=== PATIENT | female | born 1980 | race Caucasian/White ===

== ENCOUNTER → 2016-10-06 | Outpatient (CLI) | payer MEDICAID | LOC: OD 10:33 | PROVIDERS: ATTEND Physician Assistant | DX: R05 Cough (principal) | CPT/HCPCS: 71020 ==

== ENCOUNTER 2018-07-30 17:33 | Emergency (ER) | payer SELFPAY ==
[2018-07-30] MEDS ORDERED: NORMAL SALINE 1000 ML 1,000 ML IV ONE (17:59)
[2018-07-30] MEDS ORDERED: KETOROLAC TROMETHAMINE INJ/PF 30 MG/1 ML SDV IV ONE (17:59)
[2018-07-30] MEDS ORDERED: ONDANSETRON HCL INJ/PF 4 MG/2 ML SDV IV ONE (17:59)
--- NOTE | 2018-07-30 18:01 | ER Document Report ---
ED Medical Screen (RME) - General Chief Complaint: Flank Pain Stated Complaint: ABDOMINAL PAIN, VOMITING Time Seen by Provider: 07/30/18 17:58 Mode of Arrival: Ambulatory Information source: Patient TRAVEL OUTSIDE OF THE [place] IN LAST 30 DAYS: No - HPI Patient complains to provider of: L flank; abd pain Onset: Yesterday - pt. with onset of L flank pain radiating to lower abd with N and vomiting several times. Denies diarrhea - Related Data Allergies/Adverse Reactions: No Known Allergies Allergy (Unverified 07/30/18 17:34) Physical Exam - Vital signs Vitals: Temp Pulse Resp BP Pulse Ox 98.0 F 62 20 146/81 H 97 07/30/18 17:46 07/30/18 17:46 07/30/18 17:46 07/30/18 17:46 07/30/18 17:46 Course - Vital Signs Vital signs: Temp Pulse Resp BP Pulse Ox 98.0 F 62 20 146/81 H 97 07/30/18 17:46 07/30/18 17:46 07/30/18 17:46 07/30/18 17:46 07/30/18 17:46 Doctor's Discharge - Discharge Referrals: TYE JADE MD [Primary Care Provider] - Follow up as needed
[2018-07-30 18:43] LABS: HEMATOCRIT 39.4 % (36.0-47.0); HEMOGLOBIN 13.4 g/dL (12.0-15.5); MEAN CORPUSCULAR HEMOGLOBIN 34.2 pg (27.0-33.4); MEAN CORPUSCULAR HGB CONC 34.2 g/dL (32.0-36.0); MEAN CORPUSCULAR VOLUME 100 fl (80-97); PLATELET COUNT 460 10^3/uL (150-450); RED BLOOD COUNT 3.93 10^6/uL (3.72-5.28); RED CELL DISTRIBUTION WIDTH 14.1 % (11.5-14.0); WHITE BLOOD COUNT 21.5 10^3/uL (4.0-10.5)
[2018-07-30 18:45] LABS: APPEARANCE,URINE CLOUDY; BILIRUBIN,URINE NEGATIVE (NEGATIVE); COLOR,URINE YELLOW; GLUCOSE, URINE NEGATIVE (NEGATIVE); KETONES,URINE 20 mg/dL (NEGATIVE); LEUKOCYTE ESTERASE,URINE NEGATIVE (NEGATIVE); NITRITE,URINE NEGATIVE (NEGATIVE); PROTEIN,URINE NEGATIVE (NEGATIVE); URINE SPECIFIC GRAVITY 1.021; UROBILINOGEN,URINE NEGATIVE mg/dL (<2.0)
[2018-07-30 18:56] LABS: ALANINE AMINOTRANSFERASE 23 U/L (9-52); ALBUMIN 4.6 g/dL (3.5-5.0); ALKALINE PHOSPHATASE 89 U/L (38-126); ANION GAP 9 (5-19); ASPARTATE AMINO TRANSFERASE 17 U/L (14-36); BILIRUBIN,DIRECT 0.3 mg/dL (0.0-0.4); BILIRUBIN,TOTAL 0.4 mg/dL (0.2-1.3); BLOOD UREA NITROGEN 11 mg/dL (7-20); CALCIUM 10.1 mg/dL (8.4-10.2); CARBON DIOXIDE 27 mmol/L (22-30); CHLORIDE 105 mmol/L (98-107); GLUCOSE 120 mg/dL (75-110); SODIUM 141.2 mmol/L (137-145); TOTAL PROTEIN 7.7 g/dL (6.3-8.2)
--- NOTE | 2018-07-30 19:00 | ER Document Report ---
ED General - General Mode of Arrival: Ambulatory TRAVEL OUTSIDE OF THE [place] IN LAST 30 DAYS: No <LORELEI VELA - Last Filed: 07/31/18 01:39> <PATTI PRO - Last Filed: 07/31/18 07:16> <SAIMA MUNSON - Last Filed: 07/31/18 07:56> - General Chief Complaint: Flank Pain Stated Complaint: ABDOMINAL PAIN, VOMITING Time Seen by Provider: 07/30/18 17:58 Notes: Patient is a 38-year-old female who presents emergency department with a chief complaint of lower abdominal pain, vomiting, lower back pain, and feeling she was going to pass out. She states her pain started around 1230 this afternoon and she had to pin puller because she got nauseous. She then was able to get home, and vomited multiple times. She denies diarrhea, fever, chills, or any other symptoms. She does have history of an ovarian cyst. Her pain today feels similar to her ovarian cyst, but she did not have vomiting last time. She is a pack a day smoker. (EDDIE VELAHANIE Sixto) - Related Data Allergies/Adverse Reactions: No Known Allergies Allergy (Unverified 07/30/18 17:34) Past Medical History - General Information source: Patient - Social History Smoking Status: Current Every Day Smoker Chew tobacco use (# tins/day): No Frequency of alcohol use: None Drug Abuse: None Family History: Reviewed & Not Pertinent Patient has suicidal ideation: No Patient has homicidal ideation: No Renal/ Medical History: Denies: Hx Peritoneal Dialysis <LORELEI VELA - Last Filed: 07/31/18 01:39> Review of Systems <LORELEI VELA - Last Filed: 07/31/18 01:39> <PATTI PRO - Last Filed: 07/31/18 07:16> <SAIMA MUNSON - Last Filed: 07/31/18 07:56> - Review of Systems Notes: REVIEW OF SYSTEMS: CONSTITUTIONAL : Denies recent illness. Denies recent unintentional weight loss. Denies fever, chills, or sweats. EENT: Denies eye, ear, throat, or mouth pain, discharge, or symptoms. Denies nasal or sinus congestion. CARDIOVASCULAR: Denies chest pain. RESPIRATORY: Denies shortness of breath, cough, congestion, difficulty breathing , or wheezing. GASTROINTESTINAL: See HPI GENITOURINARY: Denies difficulty urinating, burning, blood in urine, urgency or frequency. MUSCULOSKELETAL: Denies neck and back pain. Denies joint pain or swelling. SKIN: Denies rash, itchiness, or lesions HEMATOLOGIC : Denies easy bruising or bleeding. LYMPHATIC: Denies swollen, painful, enlarged glands. NEUROLOGICAL: Denies no numbness or tingling denies weakness. Denies headache. Denies altered mental status. Denies alteration in speech. PSYCHIATRIC: Denies stress, anxiety, alteration in sleep patterns, or depression. All other systems reviewed and negative. (MIRIANLORELEI Henson) Physical Exam <LORELEI VELA - Last Filed: 07/31/18 01:39> <PATTI PRO - Last Filed: 07/31/18 07:16> <SAIMA MUNSON - Last Filed: 07/31/18 07:56> - Vital signs Vitals: Temp Pulse Resp BP Pulse Ox 98.0 F 62 20 146/81 H 97 07/30/18 17:46 07/30/18 17:46 07/30/18 17:46 07/30/18 17:46 07/30/18 17:46 - Notes Notes: PHYSICAL EXAMINATION: GENERAL: Appears well, healthy, well-nourished, no acute distress. HEAD: Normocephalic, atraumatic. EYES: PERRL, conjunctiva normal, all extraocular movements intact, sclera nonicteric ENT: Moist mucous membranes. NECK: Supple, no noticeable swelling, redness, rash. Normal range of motion. LUNGS: Equal breath sounds bilaterally and clear to auscultation. No wheezes rales or rhonchi. CARDIOVASCULAR: S1-S2, regular rate, regular rhythm. Radial pulses 2+, normal. ABDOMEN: Normoactive bowel sounds. Soft, tender left lower quadrant, no guarding, no rebound tenderness, and no masses palpated. EXTREMITIES: Normal strength and range of motion, no pitting or edema. No cyanosis. NEUROLOGICAL: Moves all extremities upon command. Strength 5/5 in all extremities. PSYCH: Normal mood, normal affect. SKIN: Warm, dry. No rash, lesions, ulcerations noted. Normal skin turgor. POTATO SEED CUTTER: No discharge noted on pelvic exam. (MIRIANLORELEI Henson) Course - Laboratory Result Diagrams: 07/30/18 18:15 07/30/18 18:15 <LORELEI VELA - Last Filed: 07/31/18 01:39> - Laboratory Result Diagrams: 07/30/18 18:15 07/30/18 18:15 <LUZMARIA PROAN - Last Filed: 07/31/18 07:16> - Laboratory Result Diagrams: 07/30/18 18:15 07/30/18 18:15 <LAMINSAIMA - Last Filed: 07/31/18 07:56> - Re-evaluation Re-evalutation: Patient is a 38-year-old female presents emergency department with a chief complaint of left lower quadrant pain. Patient's white blood cell count is 21,500 with a shift to the left. She states she has had ovarian cysts in the past. She will be sent for a transvaginal ultrasound and a wet mount with screening for gonorrhea and chlamydia will be done. Patient's transvaginal ultrasound shows she has a cyst on her right ovary, but she is complaining of pain in her left lower abdomen, I am suspicious that she may have diverticulitis. She will be sent for a CT of the abdomen with oral and IV contrast. Patient has a 0.8 cm obstructing stone, with moderate left hydronephrosis. She also has perinephric fluid and inflammatory changes noted to her left kidney. Since she does have an elevated white blood cell count, I will consult with [facility] urology. I have contacted [facility] to consult with urology. Will await callback. The patient now has a temperature of 100.2, but is not tachycardic with a heart rate in the 70s. I spoke with Dr. Bobo, the urologist at [facility]. He recommends transfer to [facility] since her temperature has increased. I spoke with Dr. Matthew and he will admit the patient to the hospitalist service and will consult urology for management of her hydronephrosis and renal calculi. (LORELEI VELA) 07/31/18 03:00 I reevaluated patient. She is flushed and moderately ill-appearing, recheck temperature and found her to have a fever of 101 F. Given 975 of Tylenol. She states shakes he feels better otherwise and her pain is controlled. She is not hypotensive, she is mildly tachycardic. 07/31/18 04:40 Patient much improved in appearance, heart rate is now 102, blood pressure unremarkable with systolic of 109, patient resting comfortable he. Patient does have a room assignment and we are awaiting transport. Patient has 2 peripheral IVs placed. She has received antibiotics. 07/31/18 07:05 Handoff given to Saima Munson [employer], transport has been delayed until this morning because of lack of available truck, patient has been reevaluated again, sleeping peacefully, no complaints, no concerning vital sign changes. She was given a second dose of 1 g of Rocephin for total of 2 g given. (PATTI PRO) 07/31/18 07:55 Transport is at bedside to take patient to [facility]. Patient is resting in the stretcher, vital signs are stable. Nurse is at bedside administering pain medications. Patient is stable for transport at this time. (SAIMA MUNSON ) - Vital Signs Vital signs: Temp Pulse Resp BP Pulse Ox 100.2 F 112 H 22 H 105/73 96 07/31/18 05:35 07/31/18 03:02 07/31/18 07:32 07/31/18 07:32 07/31/18 07:32 - Laboratory Laboratory results interpreted by me: 07/30/18 07/30/18 07/30/18 18:15 18:15 18:15 WBC 21.5 H MCV 100 H MCH 34.2 H RDW 14.1 H Plt Count 460 H Seg Neuts % (Manual) 91 H Lymphocytes % (Manual) 5 L Abs Neuts (Manual) 19.6 H Glucose 120 H Urine Ketones 20 H Urine Blood SMALL H Discharge <LORELEI VELA - Last Filed: 07/31/18 01:39> <PATTI PRO - Last Filed: 07/31/18 07:16> <SAIMA MUNSON - Last Filed: 07/31/18 07:56> - Discharge Clinical Impression: Kidney stone Hydronephrosis Qualifiers: Hydronephrosis type: unspecified Qualified Code(s): N13.30 - Unspecified hydronephrosis Disposition: [facility] Referrals: TYE JADE MD [Primary Care Provider] - Follow up as needed
[2018-07-30 19:04] LABS: ABSOLUTE LYMPHOCYTES# (MANUAL) 1.1 10^3/uL (0.5-4.7); ABSOLUTE MONOCYTES # (MANUAL) 0.6 10^3/uL (0.1-1.4); ABSOLUTE NEUTROPHILS# (MANUAL) 19.6 10^3/uL (1.7-8.2); ANISOCYTOSIS SLIGHT; BASOPHILS % (MANUAL) 0 % (0-2); EOSINOPHILS % (MANUAL) 1 % (0-6); HYPOCHROMASIA SLIGHT; LYMPHOCYTES % (MANUAL) 5 % (13-45); MONOCYTES % (MANUAL) 3 % (3-13); PLATELET COMMENT ADEQUATE; SEGMENTED NEUTROPHILS % (MAN) 91 % (42-78); TOTAL CELLS COUNTED 100; TOXIC GRANULATION 1+; TOXIC VACUOLATION PRESENT
[2018-07-30] MEDS ORDERED: METOCLOPRAMIDE HCL INJ/PF 10 MG/2 ML SDV IV ONE (20:00)
--- NOTE | 2018-07-30 20:18 | RADIOLOGY REPORT (SQ) ---
EXAM DESCRIPTION: U/S NON OB PEL TV W/DOPPLER COMPLETED DATE/TIME: 07/30/2018 7:59 pm REASON FOR STUDY: left pelvic pain . Left lower quadrant, left low back pain x1 day. COMPARISON: None. TECHNIQUE: Dynamic and static grayscale images acquired of the pelvis via transvaginal approach and recorded on PACS. Additional selected color Doppler and spectral images recorded. LIMITATIONS: None. FINDINGS: UTERUS: The uterus measures 9.6 x 4.8 x 5.3 cm. No focal myometrial mass was seen. ENDOMETRIAL STRIPE: The endometrium measures 7 mm in double wall thickness CERVIX: The cervix measures 3.3 cm in length. RIGHT OVARY AND DOPPLER: The right ovary measures 3.9 x 3.0 x 2.7 cm. Flow by Doppler was shown to t he right ovary. There is a 3.0 cm cyst. LEFT OVARY AND DOPPLER: The left ovary measures 3.5 x 1.7 x 1.9 cm. Flow by Doppler was shown to the left ovary. Small follicles are noted. FREE FLUID: None noted. IMPRESSION: 3.0 cm cyst at the right ovary. Otherwise, no acute findings. TECHNICAL DOCUMENTATION: JOB ID: [id number]- All Rights Reserved Rev-12/31 Reading location - IP/workstation name: [email or web address]
[2018-07-30 20:33] LABS: EPITHELIALS (WET MOUNT) 3+ EPITHELIALS SEEN; T.VAGINALIS (WET MOUNT) NO TRICHOMONAS SEEN; WBCS (WET MOUNT) RARE WBCS SEEN; YEAST (WET MOUNT) NO YEAST SEEN
[2018-07-30 21:55] LABS: CHLAM PCR NOT DETECTED (NOT DETECT); GON PCR NOT DETECTED (NOT DETECT)
[2018-07-31] MEDS ORDERED: KETOROLAC TROMETHAMINE INJ/PF 30 MG/1 ML SDV IV ONE (00:01)
--- NOTE | 2018-07-31 00:18 | RADIOLOGY REPORT (SQ) ---
EXAM DESCRIPTION: CT ABDOMEN PELVIS WITH IV CONTRAST COMPLETED DATE/TME: 07/30/2018 00:00 CLINICAL HISTORY: LLQ abd pain, leukocytosis COMPARISON: None Available. TECHNIQUE: CT of the abdomen and pelvis performed following IV administration of 67.1 mL of Omnipaque 350. DLP: 602.39 mGycm FINDINGS: Lung Bases: The visualized lung bases are clear. Bones: No destructive bone lesions identified. Abdomen: Liver: The liver has normal size and density. No intrahepatic mass or biliary dilatation. Gallbladder: No calcified gallstones. Spleen, Pancreas, and Adrenal Glands: The spleen, pancreas, and adrenal glands are unremarkable. Kidneys: There is a 0.8 cm obstructing calculus in the mid left ureter producing moderate left hydronephrosis as well as small amount of left perinephric fluid and perinephric inflammatory change. No right-sided hydronephrosis. No solid renal masses. Vasculature: The aorta and IVC have normal caliber and position. The portal vein is patent. The proximal visceral and renal arteries are patent. Stomach: The stomach and duodenum have normal course. Other: No free intraperitoneal air. No free fluid or lymphadenopathy. Pelvis: Bladder: Urinary bladder is unremarkable. Bowel: No dilated loops of large or small bowel. The distal descending and sigmoid colon are decompressed. Appendix: Normal appendix. Pelvis: Uterus is not enlarged. IMPRESSION: 1. There is a 0.8 cm obstructing calculus in the mid left ureter producing moderate left hydronephrosis. This exam was performed according to our departmental dose-optimization program, which includes automated exposure control, adjustment of the mA and/or kV according to patient size and/or use of iterative reconstruction technique.
[2018-07-31] MEDS ORDERED: MORPHINE SULFATE 10 MG/ML INJ IV ONE ×2 (00:48→07:38)
[2018-07-31] MEDS: NORMAL SALINE 1000 ML 1,000 ML IV PRN ×2 (01:12→03:07)
[2018-07-31] MEDS ORDERED: CEFTRIAXONE 1 GM/D5W RTU 1 GM/50 ML RTUPB IV ONE ×2 (02:00→05:59)
[2018-07-31] MEDS ORDERED: ACETAMINOPHEN 325 MG TABLET PO ONE (03:01)
[2018-07-31 07:52] VITALS: BP 105/73
[2018-07-31] MEDS ORDERED: CIPROFLOXACIN 400 MG/D5W RTU 400 MG/200 ML RTUPB IV SCH (10:00)
== END 2018-07-31 08:00 | disposition short-term general hospital (02) ==
LOC: ER 17:33
DX: N20.0 Calculus of kidney (principal); N13.30 Unspecified hydronephrosis; N83.201 Unspecified ovarian cyst, right side; R10.9 Unspecified abdominal pain; R10.30 Lower abdominal pain, unspecified; M54.5 Low back pain; R11.2 Nausea with vomiting, unspecified; F17.200 Nicotine dependence, unspecified, uncomplicated
CPT/HCPCS: 96376; 99285; 96361; 96375; 96365; 36415; 87086; 87210; 85025; 81025; 80053; 81001; 87491; 87591; 76830; 93976; 74177; J1885 ×2; J2765; J2270; J2405; J7030 ×2; J0696